=== PATIENT | male | born 1950 | race Caucasian/White ===

== ENCOUNTER 2017-10-26 23:40 | Emergency (ER) | payer OTHER ==
[~2017-10-26] VITALS: Ht 165.1 cm; Wt 74.5 kg
[2017-10-26 23:40] VITALS: BP 171/85
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
--- NOTE | 2017-10-27 00:11 | NUR ---
Dr. Zabala evaluating patient.
--- NOTE | 2017-10-27 00:24 | NUR ---
DAUGHTER AT BEDSIDE. PT RESTING IN NO APPARENT DISTRESS
[2017-10-27] MEDS ORDERED: ACETAMINOPHEN EXTRA STRENGTH 500 MG TAB PO ONE (00:25)
--- NOTE | 2017-10-27 00:35 | NUR ---
[employer] OFFICERS AT BEDSIDE.
--- NOTE | 2017-10-27 00:35 | NUR ---
[place] [employer] AT BEDSIDE
--- NOTE | 2017-10-27 00:49 | NUR ---
[place] [employer] LEFT BEDSIDE. FAMILY NOW AT BEDSIDE TALKING WITH PT. PT IN NO APERENT DISTRESS. WILL CONTINUE TO MONITOR.
--- NOTE | 2017-10-27 01:00 | NUR ---
Sarah johns in [facility] - 10/27/17 at 0125 by KWAKU PT TAKEN TO CT
--- NOTE | 2017-10-27 01:01 | NUR ---
PT TO CT IN STABLE CONTITION VIA JAYYKenanSUSHANT WITH EMT/PARAMEDIC Addendum: 10/27/17 at 0211 by JORDI STABLE CONDITION
--- NOTE | 2017-10-27 01:25 | NUR ---
PT RETURN FROM CT
--- NOTE | 2017-10-27 01:52 | NUR ---
PT RESTING IN BED, ON MONIOTOR, NO S/S OF DISTRESS NOTED AT THE MOMENT. AWATING FOR CT RESULTS.
[2017-10-27 02:30] VITALS: BP 130/67
--- NOTE | 2017-10-27 02:30 | NUR ---
Patient discharged with v/s stable. Written and verbal after care instructions given and explained. Patient alert, oriented and verbalized understanding of instructions. Ambulatory with steady gait. All questions addressed prior to discharge. ID band removed. Patient advised to follow up with PMD. Rx of ACETAMINOPHEN 500MG given. Patient educated on indication of medication including possible reaction and side effects. Opportunity to ask questions provided and answered.
--- NOTE | 2017-10-27 02:31 | NUR ---
CALLED PT DAUGHTER TO INFORMED HER OF PT'S DISCHARGE. PER "KATHYA" PT'S DAUGHTER SHE WILL CARTRIDGE FEEDER PT SHORLY. PT, ER MD AND ADVANCED PRACTICE PROFESSIONAL NURSE MADE AWARE.
== END 2017-10-27 02:30 | disposition home or self-care (01) ==
LOC: MED 23:40
DX: S02.40EA Zygomatic fracture, right side, initial encounter for closed fracture (principal); R51 Headache; I10 Essential (primary) hypertension; Y04.0XXA Assault by unarmed brawl or fight, initial encounter; Y93.89 Activity, other specified; Y92.512 Supermarket, store or market as the place of occurrence of the external cause; Y99.8 Other external cause status; R22.0 Localized swelling, mass and lump, head
CPT/HCPCS: 70450; 70486; 99284